=== PATIENT | female | born 1940 | race Caucasian/White ===

== ENCOUNTER 2016-11-11 20:23 | Inpatient (IN) | payer MEDICARE ==
[~2016-11-11] VITALS: Ht 162.6 cm; Wt 88.0 kg
[~2016-11-11 20:23] MED LIST: AMITRIPTYLIN10 MG PO; AMLODIPINE5 MG PO; ARAVA20 MG PO; ASPIRIN LOW DOS81 M2 PO; BENAZEPRIL10 MG PO; CIPROFLOXACN500 MG PO; CITALOPRAM20 MG PO; CITRUCEL500 MG PO; FISH OIL1000 MG PO; GLIMEPIRIDE2 MG PO; HUMALOG100 MG/ML; KEFLEX500 MG PO; LABETALOL200 MG PO; LEVOTHYROXIN100 MCG PO; MAXZIDE-2537.5 MG/TA PO; MELATONIN3 MG PO; METRONIDAZOL500 MG PO; MICRO-K10 ME1 PO; MULTI VIT PO; PRAVASTATIN SOD20 MG PO; PROAIR HFA IN; PROBIOTI2 PO; SPIRIVA IN; VITAMIN B CO PO; [UNRECOGNIZED DRUG - CODE] PO
[2016-11-11] MEDS ORDERED: ROPINIROLE1 MG PO (21:22)
[2016-11-11] MEDS ORDERED: ZESTRIL/PRI10 MG/TAB PO (21:23)
[2016-11-11] MEDS ORDERED: CYMBALTA60 MG PO (21:23)
[2016-11-11] MEDS ORDERED: ADEMPAS2.5 MG PO (21:24)
[2016-11-11 23:30] LABS: HEMATOCRIT 34.7 % (37.0-47.0); HEMOGLOBIN 11.5 g/dl (12.0-16.0); IMMATURE GRANULOCYTES 0.6 % (0.0-1.0); MEAN CELL VOLUME 92.8 fL CALC (80.0-100.0); MEAN CORPUSCULAR HGB 30.7 pG CALC (26.0-32.0); MEAN CORPUSCULAR HGB CONC 33.1 g/L CALC (32.0-36.0); NEUT# 10.01 thou/uL (2.00-7.15); RED BLOOD COUNT 3.74 mill/uL (4.20-5.60); RED CELL DISTRI WIDTH 14.8 % (11.5-15.5)
[2016-11-11 23:36] LABS: ALBUMIN 4.2 g/dL (3.2-5.0); ALKALINE PHOSPHATASE 81 u/l (38-126); ANION GAP 15 (6-22 (CALC)); BILIRUBIN, TOTAL 0.7 mg/dL (0.0-1.4); BUN 34 mg/dL (8-23); BUN/CREATININE RATIO 27 (12-20 (CALC)); CALCIUM 9.1 mg/dL (8.4-10.2); CARBON DIOXIDE 26 mmol/l (22-30); CHLORIDE 98 mmol/l (95-108); CREATININE 1.3 mg/dL (0.5-1.0); GFR 40 ML/MIN (>=60 (CALC)); GFR FOR AFR.AMER. 48 ML/MIN (>=60 (CALC)); GLUCOSE 234 mg/dL (82-115); POTASSIUM 3.6 mmol/l (3.5-5.1); SGOT/AST 33 u/l (9-36); SGPT/ALT 27 u/l (11-66); SODIUM 136 mmol/l (137-146); TOTAL PROTEIN 7.6 g/dL (6.3-8.2)
[2016-11-11 23:50] LABS: MYOGLOBIN 122 ng/mL (0 - 62)
[2016-11-12 05:38] VITALS: BP 142/67
[2016-11-12 08:45] VITALS: BP 139/52
[2016-11-12 11:00] VITALS: BP 153/50
[2016-11-12 13:13] LABS: HEMATOCRIT 38.3 % (37.0-47.0); HEMOGLOBIN 12.6 g/dl (12.0-16.0); IMMATURE GRANULOCYTES 0.8 % (0.0-1.0); MEAN CELL VOLUME 92.5 fL CALC (80.0-100.0); MEAN CORPUSCULAR HGB 30.4 pG CALC (26.0-32.0); MEAN CORPUSCULAR HGB CONC 32.9 g/L CALC (32.0-36.0); NEUT# 8.12 thou/uL (2.00-7.15); RED BLOOD COUNT 4.14 mill/uL (4.20-5.60); RED CELL DISTRI WIDTH 14.6 % (11.5-15.5)
[2016-11-12 13:34] LABS: CALCIUM 9.6 mg/dL (8.4-10.2); CREATININE 1.1 mg/dL (0.5-1.0); POTASSIUM 3.2 mmol/l (3.5-5.1)
[2016-11-12 15:07] VITALS: BP 154/57
[2016-11-12 19:02] VITALS: BP 151/52
[2016-11-12 23:27] VITALS: BP 129/54
[2016-11-13 02:18] VITALS: BP 134/68
[2016-11-13 04:15] VITALS: BP 135/62
[2016-11-13 05:07] LABS: HEMATOCRIT 35.2 % (37.0-47.0); HEMOGLOBIN 11.8 g/dl (12.0-16.0); IMMATURE GRANULOCYTES 0.4 % (0.0-1.0); MEAN CELL VOLUME 91.7 fL CALC (80.0-100.0); MEAN CORPUSCULAR HGB 30.7 pG CALC (26.0-32.0); MEAN CORPUSCULAR HGB CONC 33.5 g/L CALC (32.0-36.0); RED BLOOD COUNT 3.84 mill/uL (4.20-5.60); RED CELL DISTRI WIDTH 14.4 % (11.5-15.5)
[2016-11-13 05:39] LABS: ANION GAP 17 (6-22 (CALC)); BUN 30 mg/dL (8-23); BUN/CREATININE RATIO 30 (12-20 (CALC)); CALCIUM 9.6 mg/dL (8.4-10.2); CARBON DIOXIDE 24 mmol/l (22-30); CHLORIDE 101 mmol/l (95-108); GFR 54 ML/MIN (>=60 (CALC)); GFR FOR AFR.AMER. > 60 ML/MIN (>=60 (CALC)); GLUCOSE 166 mg/dL (82-115); POTASSIUM 3.6 mmol/l (3.5-5.1); SODIUM 138 mmol/l (137-146)
[2016-11-13 07:42] VITALS: BP 147/72
[2016-11-13] MEDS ORDERED: LABETALOL200 MG PO (10:28)
[2016-11-13 11:05] VITALS: BP 165/48
[2016-11-13] MEDS ORDERED: DOXYCYC MONO100 M2 PO (15:44)
[2016-11-13] MEDS ORDERED: ALBUTEROL0.5 % IN (15:44)
[2016-11-13] MEDS ORDERED: PROAIR HFA IN (15:44)
[2016-11-13] MEDS ORDERED: MEDDOSEPAK PO (15:48)
== END 2016-11-13 16:05 | disposition home or self-care (01) | DRG 191 ==
LOC: ENPENDDIS → ED 20:23 → ED-I 11-12 01:30 → ED 11-12 04:24 → MS2 11-12 04:25
PROVIDERS: Emergency Medicine; ADMIT Internal Medicine; ATTEND Internal Medicine
DX: J44.0 Chronic obstructive pulmonary disease with (acute) lower respiratory infection (principal); N17.9 Acute kidney failure, unspecified; I27.2 Other secondary pulmonary hypertension; Z99.81 Dependence on supplemental oxygen; J20.9 Acute bronchitis, unspecified; I10 Essential (primary) hypertension; E11.9 Type 2 diabetes mellitus without complications; E78.5 Hyperlipidemia, unspecified; M06.9 Rheumatoid arthritis, unspecified; R09.02 Hypoxemia; M79.7 Fibromyalgia; G47.33 Obstructive sleep apnea (adult) (pediatric); I25.10 Atherosclerotic heart disease of native coronary artery without angina pectoris; I34.1 Nonrheumatic mitral (valve) prolapse; E03.9 Hypothyroidism, unspecified; Z86.711 Personal history of pulmonary embolism; Z86.718 Personal history of other venous thrombosis and embolism; Z96.653 Presence of artificial knee joint, bilateral
CPT/HCPCS: A9540; A9567; J1650

== ENCOUNTER 2017-04-05 14:55 | Observation (INO) | payer MEDICARE ==
[~2017-04-05] VITALS: Ht 162.6 cm; Wt 49.2 kg
[~2017-04-05 14:55] MED LIST changes: +ADEMPAS2.5 MG PO; +ALBUTEROL0.5 % IN; +CYMBALTA60 MG PO; +DOXYCYC MONO100 M2 PO; +MEDDOSEPAK PO; +ROPINIROLE1 MG PO; +ZESTRIL/PRI10 MG/TAB PO
--- NOTE | 2017-04-05 15:09 | NUR ---
PT ARRIVED TO FLOOR VIA WHEELCHAIR ACCOMPANIED BY VOLUNTEER. PT ON HOME O2 @ 3L VIA NC. OB W/ MINIMAL EXERTION. PT REPORTS DIZZINESS UPON STANDING. FALL PRECAUTIONS REINFORCED. PLAN OF CARE DISCUSSED. REPORTING OF CONCERNS ENCOURAGED. CALL LIGHT REVIEWED AND IN REACH. PT STATES UNDERSTANDING.
[2017-04-05 15:15] VITALS: BP 147/46
[2017-04-05] MEDS ORDERED: SYNTHROID100 MCG PO (15:55)
[2017-04-05] MEDS ORDERED: BASAGLAR K100 UNIT/M SC (15:59)
[2017-04-05] MEDS ORDERED: BUMETANIDE1 MG PO (16:01)
[2017-04-05 17:20] LABS: URINE BILIRUBIN - DIPSTICK NEGATIVE (NEGATIVE); URINE BLOOD DIPSTICK TRACE-INTACT (NEGATIVE); URINE CLARITY CLOUDY; URINE COLOR YELLOW; URINE GLUCOSE - DIPSTICK NEGATIVE (NEGATIVE); URINE KETONE NEGATIVE (NEGATIVE); URINE LEUK ESTERASE LARGE (NEGATIVE); URINE NITRITE - DIPSTICK NEGATIVE (Negative); URINE PROTEIN - DIPSTICK NEGATIVE (NEG-TRACE); URINE SPECIFIC GRAVITY <=1.005; URINE UROBILINOGEN - DIPSTICK 0.2 E.U./dL (0.2)
[2017-04-05 17:20] LABS: HEMATOCRIT 32.5 % (37.0-47.0); HEMOGLOBIN 10.7 g/dl (12.0-16.0); IMMATURE GRANULOCYTES 0.7 % (0.0-1.0); MEAN CELL VOLUME 93.7 fL CALC (80.0-100.0); MEAN CORPUSCULAR HGB 30.8 pG CALC (26.0-32.0); MEAN CORPUSCULAR HGB CONC 32.9 g/L CALC (32.0-36.0); NEUT# 7.05 thou/uL (2.00-7.15); RED BLOOD COUNT 3.47 mill/uL (4.20-5.60); RED CELL DISTRI WIDTH 14.7 % (11.5-15.5)
[2017-04-05 17:21] LABS: URINE RBC 0-2 RBC/hpf (0-5)
[2017-04-05 17:22] LABS: URINE BACTERIA FEW hpf; URINE EPITHELIAL CELLS MODERATE EPI/hpf (0-FEW)
[2017-04-05 17:35] LABS: ALBUMIN 3.5 g/dL (3.2-5.0); BILIRUBIN, TOTAL 0.7 mg/dL (0.0-1.4); CALCIUM 8.9 mg/dL (8.4-10.2); CREATININE 1.4 mg/dL (0.5-1.0); POTASSIUM 3.4 mmol/l (3.5-5.1); TOTAL PROTEIN 6.1 g/dL (6.3-8.2)
--- NOTE | 2017-04-05 19:00 | NUR ---
INTRODUCED TO PT, FOUND PT RESTING IN BED, ON 4LPM HUMIDIFIED OXYGEN, A/OX3, DENIES PAIN OR NEEDS AT THIS TIME, SPO2 AT 90% NOW, CIPAP AT BEDSIDE, STATES "I WILL CALL YOU WHEN I AM READY FOR CIPAP." PT WEARING A BRIEF FROM HOME, INSTRUCTED ON SKIN INTERGRITY, PT REFUSES TO REMOVE BRIEF, STATES "I WEAR IT AT HOME ALL DAY." NO DISTRESS NOTED, RESP ARE UNLABORED, 20G RFA SALINE LOCKED, FLUSHES WELL AND IS FREE OF EDEMA OR REDNESS, TRACE EDEMA NOTED ON LEFT ANKLE, LUNGS ARE COARSE AND DIMINISHED BIBASILAR, NO BM NOTED OR URINE INSPECTED AT THIS TIME. EXPLAINED PLAN OF CARE, SAFETY MEASURES, AND MED SCHEDULE, PT VOICES UNDERSTANDING, CALL HAQ IS AT REACH, WILL CONTINUE TO MONITOR.
[2017-04-05 19:08] VITALS: BP 141/64
--- NOTE | 2017-04-05 22:25 | NUR ---
PT WEARING CIPAP, RESTING IN BED AWAKE, PROVIDED A BSC, ON 4LPM OF HUMIDIFIED OXYGEN, NO DISTRESS NOTED AT THIS TIME, DENIES SOB OR PAIN, OFFERED TOILETING, DENIES NEEDS AT THIS TIME. WILL CONTINUE TO MONITOR. CALL HAQ AT REACH.
--- NOTE | 2017-04-06 00:05 | NUR ---
PT RESTING IN BED WITH EYES CLOSED, VOICES NOT COMPLAINTS, RESP ARE EVEN AND UNLABORED, WEARING CIPAP, DENIES PAIN OR NEEDS, CALL HAQ AT REACH, WILL CONTINUE TO MONITOR.
--- NOTE | 2017-04-06 03:45 | NUR ---
FOUND PT DIAPHORETIC, C/O DIZZINESS, ACCU CHECK/FINGERSTICK 53, PROVIDED WITH X2 ORANGE JUICE WITH X5 REGULAR SUGAR PACKAGES, X1 CRACKERS, AND ONE ICE CREAM CUP. WILL REASSESS GLUCOSE IN A HOUR.
[2017-04-06 03:53] VITALS: BP 148/50
--- NOTE | 2017-04-06 04:11 | NUR ---
TEMP 98.3 TYMPANIC, RESP RATE 18 EVEN AND UNLABORED, HR 80, BP 148/50, 96% ON CIPAP WITH 4LPM ON HUMIDIFIED OXYGEN.
--- NOTE | 2017-04-06 05:29 | NUR ---
PT RESTING QUIELTY IN BED, RESPONDS TO VERBAL STIMULI, A/O, DENIES DIZZINESS OR PAIN, NO S/S OF DISTRESS NOTED, WEARING CIPAP, ENCOURAGED TO CALL IF NEEDED, WILL CONTINUE TO MONITOR.
[2017-04-06 05:36] LABS: CALCIUM 8.9 mg/dL (8.4-10.2); CREATININE 1.1 mg/dL (0.5-1.0); POTASSIUM 3.5 mmol/l (3.5-5.1)
[2017-04-06 05:46] LABS: HEMATOCRIT 37.5 % (37.0-47.0); HEMOGLOBIN 12.3 g/dl (12.0-16.0); IMMATURE GRANULOCYTES 1.7 % (0.0-1.0); MEAN CELL VOLUME 93.8 fL CALC (80.0-100.0); MEAN CORPUSCULAR HGB 30.8 pG CALC (26.0-32.0); MEAN CORPUSCULAR HGB CONC 32.8 g/L CALC (32.0-36.0); NEUT# 6.05 thou/uL (2.00-7.15); RED CELL DISTRI WIDTH 14.5 % (11.5-15.5)
--- NOTE | 2017-04-06 07:53 | NUR ---
REPORT RECEIVED FROM JOCELYNE HERNANDEZ. PT SITTING UPRIGHT IN BED. ASSISTANCE GIVEN FOR SWITCHING TO O2 NC FROM CPAP MACHINE. DENIES PAIN. REPORTING OF CONCERNS ENCOURAGED. PLAN OF CARE DISCUSSED. CALL LIGHT REVIEWED AND IN REACH. PT STATES UNDERSTANDING.
[2017-04-06 08:31] VITALS: BP 148/50
[2017-04-06] MEDS ORDERED: KEFLEX500 M1 PO (08:32)
--- NOTE | 2017-04-06 10:19 | NUR ---
PRESCRIPTION FOR KEFLEX CALLED INTO [facility] PER PT REQUEST.
--- NOTE | 2017-04-06 10:49 | NUR ---
Discharge instructions given. Patient verbalizes understanding of same. Discharged in stable condition via Wheelchair to Home with spouse. All belongings sent with pt.
--- NOTE | 2017-04-07 10:40 | NUR ---
Lab reports preliminary blood cultures from 04/05/17 growing gram negative rods in 1 bottle. Pt also has Urine culture positive for E.Coli sensitive to cephalosporins. Multiple comorbitities COPD, pulmonary HTN, DM, UTI. Scr=1.1, GFR=48. Pt DC on 04/06/17 rx keflex 500mg q8h. Preliminary blood cultures called to Dr Koo for review of case.
== END 2017-04-06 10:46 | disposition home or self-care (01) ==
LOC: MS2 14:55
PROVIDERS: ADMIT Internal Medicine; ATTEND Internal Medicine
DX: T83.518A Infection and inflammatory reaction due to other urinary catheter, initial encounter (principal); N39.0 Urinary tract infection, site not specified; I27.2 Other secondary pulmonary hypertension; J96.10 Chronic respiratory failure, unspecified whether with hypoxia or hypercapnia; E78.5 Hyperlipidemia, unspecified; G25.81 Restless legs syndrome; M06.9 Rheumatoid arthritis, unspecified; M79.7 Fibromyalgia; G47.33 Obstructive sleep apnea (adult) (pediatric); E03.9 Hypothyroidism, unspecified; I25.10 Atherosclerotic heart disease of native coronary artery without angina pectoris; N17.9 Acute kidney failure, unspecified; I34.1 Nonrheumatic mitral (valve) prolapse; J44.9 Chronic obstructive pulmonary disease, unspecified; F32.9 Major depressive disorder, single episode, unspecified; I12.9 Hypertensive chronic kidney disease with stage 1 through stage 4 chronic kidney disease, or unspecified chronic kidney disease; E11.22 Type 2 diabetes mellitus with diabetic chronic kidney disease; N18.9 Chronic kidney disease, unspecified; B96.20 Unspecified Escherichia coli [E. coli] as the cause of diseases classified elsewhere; Y84.6 Urinary catheterization as the cause of abnormal reaction of the patient, or of later complication, without mention of misadventure at the time of the procedure; Z99.81 Dependence on supplemental oxygen; Z79.4 Long term (current) use of insulin; Z86.718 Personal history of other venous thrombosis and embolism; Z86.711 Personal history of pulmonary embolism

== ENCOUNTER 2017-05-12 08:59 | Inpatient (IN) | payer MEDICARE ==
[~2017-05-12] VITALS: Ht 162.6 cm; Wt 89.4 kg
[~2017-05-12 08:59] MED LIST changes: +BASAGLAR K100 UNIT/M SC; +BUMETANIDE1 MG PO; +KEFLEX500 M1 PO; +SYNTHROID100 MCG PO
--- NOTE | 2017-05-12 09:20 | NUR ---
PT IMMEDIATELY MOVED TO ER ROOM 10 VIA WC & PLACED ON O2. EKG DONE. IV ESTABLISHED. 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
[2017-05-12 10:09] LABS: HEMATOCRIT 33.1 % (37.0-47.0); HEMOGLOBIN 10.8 g/dl (12.0-16.0); IMMATURE GRANULOCYTES 0.9 % (0.0-1.0); MEAN CELL VOLUME 94.8 fL CALC (80.0-100.0); MEAN CORPUSCULAR HGB 30.9 pG CALC (26.0-32.0); MEAN CORPUSCULAR HGB CONC 32.6 g/L CALC (32.0-36.0); NEUT# 5.85 thou/uL (2.00-7.15); RED BLOOD COUNT 3.49 mill/uL (4.20-5.60); RED CELL DISTRI WIDTH 15.4 % (11.5-15.5)
[2017-05-12 10:37] LABS: BILIRUBIN, TOTAL 0.9 mg/dL (0.0-1.4); CALCIUM 9.4 mg/dL (8.4-10.2); CREATININE 1.1 mg/dL (0.5-1.0); POTASSIUM 3.4 mmol/l (3.5-5.1); TOTAL PROTEIN 6.9 g/dL (6.3-8.2)
--- NOTE | 2017-05-12 10:39 | NUR ---
PATIENT ASSISTED TO BSC MINIMAL DISTRESS NOTED, SOB WITH EXCRERTION, PATIENT STATES HAVING CHEST DISCOMFORT. MD AWARE, REPEAT EKG ORDERED.
[2017-05-12 10:49] LABS: MYOGLOBIN 204 ng/mL (0 - 62)
[2017-05-12] MEDS ORDERED: LEVOTHYROXIN125 MCG PO (11:05)
[2017-05-12] MEDS ORDERED: FUROSEMIDE40 MG PO (11:11)
[2017-05-12] MEDS ORDERED: LETAIRIS10 MG PO (11:13)
[2017-05-12] MEDS ORDERED: SPIRIVA HANDIH18 MCG IN (11:15)
--- NOTE | 2017-05-12 11:38 | NUR ---
PT UPDATED ON PLAN OF CARE. VERBAL UNDERSTANDING. DENIES ANY QUESTIONS. CALL LIGHT WITHIN REACH, WILL CONTINUE TO MONITOR.
--- NOTE | 2017-05-12 12:38 | NUR ---
PATIENT AMBULATES IN HALLWAY WITH 5L O2 ON, PLACED ON O2 MONITOR INDICATED O2 85%-90% AFTER AMBULATION. AWARE. WILL CONTINUE TO MONITOR.
--- NOTE | 2017-05-12 14:00 | NUR ---
REPORT CALLED TO JOCELYNE GARCIA.
--- NOTE | 2017-05-12 14:20 | NUR ---
PT TRANSPORTED TO MED SURG VIA STRETCHER TELE MONITOR IN PLACE WITH ED STAFF.
--- NOTE | 2017-05-12 14:30 | NUR ---
PT ARRIVED TO THE FLOOR VIA STRETCHER AND ONE PERSON ASSISTANCE FROM THE ER. PT IS AMBULATORY WITH PORTABLE OXYGEN @5L- PER PT. PT NEEDS MINIMAL STANDBY ASSISTANCE, HAS PERSONNAL WHEELCHAIR THAT IS USED A WALKER. PT ORIENTATED TO ROOM, RIGHTS, RESPONSIBILTIES, AND CALL LIGHT. HISTORY AND PHYSICAL PERFORMED. PT INSTRUCTED TO USE CALL LIGHT FOR ASSISTANCE, STATES UNDERSTANDING.
--- NOTE | 2017-05-12 15:30 | NUR ---
PT GIVEN 40MG OF IV LASIX. PT STATES UNDERSTANDING OF SIDE EFFECTS. BSC WITH HAT PROVIDED. PT INSTRUCTED TO CALL FOR ASSISTANCE. STATES UNDERSTANDING.
[2017-05-12 15:50] LABS: URINE BILIRUBIN - DIPSTICK NEGATIVE (NEGATIVE); URINE BLOOD DIPSTICK NEGATIVE (NEGATIVE); URINE CLARITY CLEAR; URINE COLOR YELLOW; URINE GLUCOSE - DIPSTICK NEGATIVE (NEGATIVE); URINE KETONE NEGATIVE (NEGATIVE); URINE LEUK ESTERASE NEGATIVE (Negative); URINE NITRITE - DIPSTICK NEGATIVE (Negative); URINE PH 6.5 (4.5-8.0); URINE PROTEIN - DIPSTICK TRACE mg/dL (NEG-TRACE); URINE UROBILINOGEN - DIPSTICK 0.2 E.U./dL (0.2)
[2017-05-12 16:45] VITALS: BP 100/43
[2017-05-12 18:40] VITALS: BP 137/53
--- NOTE | 2017-05-12 20:01 | NUR ---
PATIENT UP TO THE BSC TO VOID CLEAR YELLOW URINE AND THEN BACK TO BED. PATIENT IS ALERT AND ORIENTEDX3 WEARING O2 VIA NASAL CANNULA AT 5LPM. PATIENT STATES THATSHE IS O2 DEPENDANT AT HOME WELL. PATIENT WITH HEP LOCK TO THE RIGHT FOREARM-SITE APPEARS HEALTHY AT THIS TIME. SAFETY PRECAUTIONS REINFORCED. CALL LIGHT IN REACH. WILL CONT TO MONITOR.
--- NOTE | 2017-05-12 21:00 | NUR ---
PATIENT UP TO BSC AGAIN TO VOID AND THEN BACK TO BED. PATIENT CONT WITH O2 VIA NASAL CANNULA AT 5LPM. HS MEDS GIVEN ORDERED. BS-205. PATIENT IS REFUSING HER LEVEMIR TONIGHT SHE STATES THAT SHE DIDN'T EAT MUCH TODAY AND NOTHING TONIGHT. DR. LARIOS AWARE. CALL LIGHT IN REACH. WILL CONT TO MONITOR.
[2017-05-12 23:40] VITALS: BP 127/62
--- NOTE | 2017-05-13 | NUR ---
PATIENT APPEARS SLEEPING AT THIS TIME WITH EYES CLOSED. C-PAP IN USE. CALL LIGHT IN REACH. WILL CONT TO MONITOR.
--- NOTE | 2017-05-13 04:12 | NUR ---
PATIENT APPEARS SLEEPING AT THIS TIME. CALL LIGHT IN REACH. WILL CONT TO MONITOR.
[2017-05-13 04:51] VITALS: BP 137/55
[2017-05-13 06:57] LABS: HEMATOCRIT 31.2 % (37.0-47.0); HEMOGLOBIN 10.4 g/dl (12.0-16.0); MEAN CELL VOLUME 95.7 fL CALC (80.0-100.0); MEAN CORPUSCULAR HGB 31.9 pG CALC (26.0-32.0); MEAN CORPUSCULAR HGB CONC 33.3 g/L CALC (32.0-36.0); RED BLOOD COUNT 3.26 mill/uL (4.20-5.60); RED CELL DISTRI WIDTH 15.3 % (11.5-15.5)
--- NOTE | 2017-05-13 07:00 | NUR ---
SHIFT CHANGE REPORT FROM FRANK PINO AWAKE ALERT AND ORIENTED RESTING IN BED, TELE MONITOR IN PLACE, O2 @ 5L VIA NC IN PLACE, C/O CHEST DISCOMFORT AT THIS TIME AND STATES SHE DOES NOT BELIEVE ITS HER HEART BUT THINKS ITS FROM HER PULMONARY HTN. CALL HAQ IN REACH, WILL CONTINUE TO MONITOR AND ADDRESS NEEDS.
[2017-05-13 08:22] VITALS: BP 121/56
[2017-05-13 08:33] LABS: CHOLESTEROL HDL RATIO 3.9 (<4.4 (CALC)); CREATININE 1.1 mg/dL (0.5-1.0); POTASSIUM 3.2 mmol/l (3.5-5.1)
[2017-05-13 11:07] VITALS: BP 113/55
--- NOTE | 2017-05-13 11:31 | NUR ---
UP TO W/C AT THIS TIME, PHARMACY CONSULTED WITH PT RN REQUESTED, PT EDUCATED/INFORMED ON REASON FOR PROTOCOL OF DOCUMENTING ALL MEDS ADMINISTERED AND STATED UNDERSTANDING. HOME MEDS ARE NOW BARCODED BY PHARMACY AND WILL BE SCANNED ORDERED.
[2017-05-13 15:21] VITALS: BP 128/65
--- NOTE | 2017-05-13 17:00 | NUR ---
ADVISED CALMLY OF MOVE TO PACU FOR SAFETY FROM [facility], STATES UNDERSTANDING, SETTLED IN PACU AT THIS TIME, CALL HAQ IN REACH.
[2017-05-13 19:15] VITALS: BP 141/60
--- NOTE | 2017-05-13 19:15 | NUR ---
PATIENT RESTING IN BED IN THE PACU DUE TO IMPENDING HURRICAINE. PATIENT IS AWAKE ALERT AND ORIENTEDX3 WITH O2 VIA O2 VIA NASAL CANNULA AT 5LPM. PATIENT WITH HEP LOCK TO RIGHT FOREARM-SITE APPEARS HEALTHY AT THIS TIME. PATIENT IS UP TO THE BSC TO VOID CLEAR YELLOW URINE. SAFETY PRECAUTIONS REINFORCED. CALL LIGHT IN REACH. WILL CONT TO MONITOR.
--- NOTE | 2017-05-13 21:11 | NUR ---
ROCEPHIN GIVEN ORDERED. PATIENT MEDICATED WITH RESTORIL 15MG PO ORDERED FOR SLEEP. PATIENT REFUSED HER LEVEMIR AGAIN TONIGHT-"STATES TAHT SHE DOESN'T WANT TO DROP TOO LOW. PATIENT CONT TO VOID CLEAR YELLOW URINE-STATES SLIGHT BURNING UPON URINATION. SAFETY PRECAUTIONS REINFORCED. CALL LIGHT IN REACH. WILL CONT TO MONITOR.
--- NOTE | 2017-05-13 22:55 | NUR ---
PATIENT REMAINS IN PACU DUE TO HURRICANE CONDIDTIONS. PATIENT WITH C-PAP IN PLACE FOR NIGHT. EYES ARE CLOSED AND APPEARS SLEEPING AT THIS TIME. CALL LIGHT IN REACH. WILL CONT TO MONITOR.
--- NOTE | 2017-05-13 23:57 | NUR ---
PATIENT RETURNED TO ROOM 272 VIA BED WITH O2 IN PLACE AFTER CODE EXIT LIFTED. PATIENT WITH C-PAP IN PLACE AT THIS TIME. NO COMPLAINTS AT THIS TIME. SAFETY PRECAUTIONS REINFORCED. CALL LIGHT IN REACH. WILL CONT TO MONITOR.
[2017-05-14] VITALS (7 sets, daily range): BP systolic 112–148; BP diastolic 45–70
--- NOTE | 2017-05-14 04:43 | NUR ---
PATIENT RESTING IN BED AT THIS TIME WITH NO [id number]-ROX IN PLACE. CALL LIGHT IN REACH. WILL CONT TO MONITOR.
--- NOTE | 2017-05-14 07:00 | NUR ---
SHIFT CHANGE REPORT FROM FRANK PINO AWAKE ALERT AND ORIENTED SITTING UP AT BEDSIDE, O2 @ 5L VIA NC IN PLACE, ALL NEEDS ADDRESSED, CALL HAQ IN REACH.
[2017-05-14 07:51] LABS: ANION GAP 15 (6-22 (CALC)); BUN 20 mg/dL (8-23); BUN/CREATININE RATIO 20 (12-20 (CALC)); CALCIUM 9.2 mg/dL (8.4-10.2); CARBON DIOXIDE 26 mmol/l (22-30); CHLORIDE 106 mmol/l (95-108); GFR 54 ML/MIN (>=60 (CALC)); GFR FOR AFR.AMER. > 60 ML/MIN (>=60 (CALC)); GLUCOSE 193 mg/dL (82-115); POTASSIUM 3.2 mmol/l (3.5-5.1); SODIUM 143 mmol/l (137-146)
--- NOTE | 2017-05-14 11:15 | NUR ---
REPORT RECIEVED FROM JOCELYNE ALMONTE. ASSESSMENT COMPELTED. PT SITTING UP IN RECLINER CHAIR. PT VERBALIZES NO C/O AT THIS TIME. WILL CONTINUE TO MONITOR. CALL LIGHT IN REACH.
--- NOTE | 2017-05-14 17:40 | NUR ---
PT SITTING UP IN RECLINER CHAIR. NO C/O AT THIS TIME. RESP EVEN AND UNLABORED. WILL CONTINUE TO MONITOR. CALL LIGHT IN REACH.
--- NOTE | 2017-05-14 19:00 | NUR ---
RECEIVED SHIFT REPORT FROM SUMA STILL. PATIENT UP TO CHAIR. DENIES PAIN. NO APPARENT ACUTE DISTRESS NOTED AT THIS TIME. WILL CONTINUE TO MONITOR.
--- NOTE | 2017-05-14 22:05 | NUR ---
BEDSIDE REPORT RECEIVED FROM RUSSELLRN;PT RESTING AT BEDSIDE;PT DENIES ANY PAIN OR DISCOMFORTS AT THIS TIME;02 ON @ 5L NC WITH EVEN AND UNLABORED RESPIRATIONS;BEDSIDE COMMODE EMPTIED OF 500CC OF CLEAR/YELLOW URINE;PT DENIES ANY NEEDS AT THIS TIME;SAFETY PRECAUTIONS REVIEWED;PT EDUCATED TO CALL FOR ASSISTANCE IF NEEDED;FALL PRECAUTIONS IN PLACE;BED IN LOWEST POSITION WITH CALL LIGHT IN REACH;WILL CONTINUE TO MONITOR
--- NOTE | 2017-05-14 23:08 | NUR ---
IV SITE FOUND DISLODGED WITH CATHETER INTACT;NEW #22G STARTED TO RFA,WILL CONTINUE TO MONITO
--- NOTE | 2017-05-14 23:20 | NUR ---
PT APPEARS TO BE SLEEPING IN SUPINE POSITION WITH HOME CPAP ON;RESPIRATIONS EVEN AND UNLABORED;NO S/S OF DISTRESS NOTED;TELE MONITOR IN PLACE;CALL LIGHT WITHIN REACH;WILL CONTINUE TO MONITOR
[2017-05-15 06:00] VITALS: BP 118/67
--- NOTE | 2017-05-15 06:15 | NUR ---
PT RESTING AT BEDSIDE;PT REPORTS SLEEPING WELL LAST NIGHT;02 ON @ 5 L VIA NC,RESPIRATIONS EVEN AND UNLABORED;PT DENIES ANY PAIN OR DISCOMFORTS;SCHEDULED MEDICATIONS ADMINISTERED AT THIS TIME;CALL LIGHT IN REACH;WILL CONTINUE TO MONITOR
[2017-05-15 08:00] VITALS: BP 135/69
[2017-05-15 08:17] LABS: ANION GAP 16 (6-22 (CALC)); BUN 22 mg/dL (8-23); BUN/CREATININE RATIO 23 (12-20 (CALC)); CALCIUM 9.5 mg/dL (8.4-10.2); CARBON DIOXIDE 23 mmol/l (22-30); CHLORIDE 104 mmol/l (95-108); GFR 54 ML/MIN (>=60 (CALC)); GFR FOR AFR.AMER. > 60 ML/MIN (>=60 (CALC)); GLUCOSE 212 mg/dL (82-115); POTASSIUM 3.7 mmol/l (3.5-5.1); SODIUM 139 mmol/l (137-146)
--- NOTE | 2017-05-15 08:30 | NUR ---
PT SITTING UP IN RECLINER CHAIR. ASSESSMENT COMPLETED. VSS. RESP EVEN AND UNLABORED. POC DISCUSSED. PT VERBALIZES UNDERSTANDING. WILL CONTINUE TO MONITOR. CALL LIGHT IN REACH.
[2017-05-15 11:34] VITALS: BP 147/68
--- NOTE | 2017-05-15 15:17 | NUR ---
DR RUSS AT BEDSIDE. POC DISCUSSD WITH PT. PT VERBALIZES UNDERSTANDING. NO FURTHER QUESTIONS ASKED.
[2017-05-15 15:36] VITALS: BP 133/56
--- NOTE | 2017-05-15 19:30 | NUR ---
PATIENT SITTING UP IN THE RECLINER WITH O2 VIA NASAL CANNULA IN PLACE AT 5LPM. PATIENT IS ALERT AND ORIENTEDX3 WITH NO COMPLAINTS AT THIS TIME. PATIENT WITH IV SITE TO RIGHT FOREARM-SITE APPEARS HEALTHY AT THIS TIME. PATIENT CONT TO VOID QS AND STATES THAT SHE HAD BM TODAYX2. LUNGS ARE DIMINISHED THROUGHOUT. SAFETY PRECAUTIONS REINFORCED. CALL LIGHT IN REACH. WILL CONT TO MONITOR.
[2017-05-15 19:50] VITALS: BP 142/70
--- NOTE | 2017-05-16 | NUR ---
PATIENT APPEARS SLEEPING IN BED WITH C-PAP IN PLACE AND EYES CLOSED. CALL LIGHT IN REACH. WILL CONT TO MONITOR.
[2017-05-16 01:00] VITALS: BP 103/65
--- NOTE | 2017-05-16 04:06 | NUR ---
PATIENT APPEARS SLEEPING AT THIS TIME WITH C-PAP IN PLACE AND EYES CLOSED. CALL LIGHT IN REACH. WILL CONT TO MONITOR.
[2017-05-16 05:00] VITALS: BP 104/60
[2017-05-16 05:59] LABS: HEMATOCRIT 30.3 % (37.0-47.0); HEMOGLOBIN 9.9 g/dl (12.0-16.0); IMMATURE GRANULOCYTES 0.4 % (0.0-1.0); MEAN CELL VOLUME 94.4 fL CALC (80.0-100.0); MEAN CORPUSCULAR HGB 30.8 pG CALC (26.0-32.0); MEAN CORPUSCULAR HGB CONC 32.7 g/L CALC (32.0-36.0); NEUT# 6.01 thou/uL (2.00-7.15); RED BLOOD COUNT 3.21 mill/uL (4.20-5.60); RED CELL DISTRI WIDTH 14.9 % (11.5-15.5)
[2017-05-16 06:25] LABS: CALCIUM 9.1 mg/dL (8.4-10.2); CREATININE 1.2 mg/dL (0.5-1.0); MAGNESIUM 1.8 mg/dL (1.6-2.3); POTASSIUM 3.2 mmol/l (3.5-5.1)
[2017-05-16 07:17] VITALS: BP 127/64
--- NOTE | 2017-05-16 07:26 | NUR ---
REPORT RECEIVED FROM JOCELYNE PINO. PT SITTING IN CHAIR AT BEDSIDE. DENIES PAIN. NO SON. REPORTING OF CONCERNS ENCOURAGED. PLAN OF CARE DISCUSSED. PT REPORTS ANTICIPATION OF DISCHARGE. DISCHARGE PROCESS REVIEED. CALL LIGHT REVIEWED AND IN REACH. PT STATES UNDERSTANDING.
[2017-05-16 11:06] VITALS: BP 128/71
--- NOTE | 2017-05-16 13:42 | NUR ---
Discharge instructions given. Patient verbalizes understanding of same. Discharged in stable condition via Wheelchair to Home with spouse. All belongings sent with pt.
== END 2017-05-16 13:42 | disposition home health service (06) | DRG 313 ==
LOC: ED 08:59 → ED-I 10:53 → ED 12:50 → MS2 12:51
PROVIDERS: Emergency Medicine; Nurse Practitioner Family; ADMIT Internal Medicine; ATTEND Internal Medicine
DX: R07.2 Precordial pain (principal); I25.10 Atherosclerotic heart disease of native coronary artery without angina pectoris; J96.11 Chronic respiratory failure with hypoxia; E11.22 Type 2 diabetes mellitus with diabetic chronic kidney disease; I27.2 Other secondary pulmonary hypertension; E78.5 Hyperlipidemia, unspecified; G25.81 Restless legs syndrome; M06.9 Rheumatoid arthritis, unspecified; M79.7 Fibromyalgia; G47.33 Obstructive sleep apnea (adult) (pediatric); E03.9 Hypothyroidism, unspecified; I34.1 Nonrheumatic mitral (valve) prolapse; J44.9 Chronic obstructive pulmonary disease, unspecified; I44.0 Atrioventricular block, first degree; I12.9 Hypertensive chronic kidney disease with stage 1 through stage 4 chronic kidney disease, or unspecified chronic kidney disease; N18.3 Chronic kidney disease, stage 3 (moderate); Z79.4 Long term (current) use of insulin; Z79.84 Long term (current) use of oral hypoglycemic drugs; Z99.81 Dependence on supplemental oxygen; Z86.718 Personal history of other venous thrombosis and embolism; Z86.711 Personal history of pulmonary embolism; Z95.5 Presence of coronary angioplasty implant and graft; Z59.1 Inadequate housing
CPT/HCPCS: G0378

== ENCOUNTER → 2018-10-29 | Outpatient (REF) | payer MEDICARE ==
[~2018-10-29] MED LIST changes: +ERYTHROMYCIN250 MG PO; +FUROSEMIDE40 MG PO; +LETAIRIS10 MG PO; +LEVOTHYROXIN125 MCG PO; +MIRALAX3350 NF PO; +PREDNISONE20 MG PO; +PROAIR RES108 MCG/AC IN; +SPIRIVA HANDIH18 MCG IN; +TYVASO0.6 MG/ML IN
== END | disposition home or self-care (01) ==
LOC: LAB 16:08
PROVIDERS: ATTEND Nurse Practitioner Family
DX: I89.0 Lymphedema, not elsewhere classified (principal); M35.3 Polymyalgia rheumatica

== ENCOUNTER 2018-10-31 08:57 | Observation (INO) | payer MEDICARE ==
[~2018-10-31] VITALS: Ht 162.6 cm; Wt 87.0 kg
[~2018-10-31 08:57] MED LIST changes: -ERYTHROMYCIN250 MG PO; -MIRALAX3350 NF PO; -PREDNISONE20 MG PO; -PROAIR RES108 MCG/AC IN; -TYVASO0.6 MG/ML IN
--- NOTE | 2018-10-31 09:13 | NUR ---
PATIENT TO ROOM VIA EMS AND PHYSICIAN NOTIFIED OF PATIENT STATUS
--- NOTE | 2018-10-31 09:33 | NUR ---
SOON PT GOT TO ROOM, STATED SHE NEEDED TO HAVE BM, STATES TOOK MIRALAX LAST NIGHT AND SHE HAS BEEN HAVING DIARRHEA THIS AM. PT REFUSED BEDPAN. BEDSIDE COMMODE SET UP BY BEDSIDE AND ASSISTED PT TO COMMODE. AFTER GETTING PT BACK UP IN BED, PT IS REQUESTING BREAKFAST AND COFFEE, ADVISED PT SHE NEEDED TO WAIT FOR LAB AND XRAY RESULTS. PT THEN REQUESTING WATER.
[2018-10-31] MEDS ORDERED: ERYTHROMYCIN250 MG PO (09:58)
[2018-10-31] MEDS ORDERED: PREDNISONE20 MG PO (09:58)
[2018-10-31] MEDS ORDERED: TYVASO0.6 MG/ML IN (09:59)
[2018-10-31] MEDS ORDERED: MIRALAX3350 NF PO (10:00)
[2018-10-31] MEDS ORDERED: PROAIR RES108 MCG/AC IN (10:02)
--- NOTE | 2018-10-31 10:10 | NUR ---
FAMILY AT BEDSIDE, PT UP TO BEDSIDE COMMODE AGAIN WITH LIGHT BROWN DIARRHEA
[2018-10-31 10:12] LABS: HEMATOCRIT 38.2 % (37.0-47.0); HEMOGLOBIN 12.1 g/dl (12.0-16.0); IMMATURE GRANULOCYTES 0.6 % (0.0-5.0); MEAN CORPUSCULAR HGB 30.7 pG CALC (26.0-32.0); MEAN CORPUSCULAR HGB CONC 31.7 g/L CALC (32.0-36.0); RED BLOOD COUNT 3.94 mill/uL (4.20-5.60); RED CELL DISTRI WIDTH 15.3 % (11.5-15.5)
[2018-10-31 10:30] LABS: ALBUMIN 3.7 g/dL (3.2-5.0); ALKALINE PHOSPHATASE 68 u/l (38-126); ANION GAP 12 (6-22 (CALC)); BILIRUBIN, TOTAL 0.7 mg/dL (0.0-1.4); BUN 34 mg/dL (8-23); BUN/CREATININE RATIO 29 (12-20 (CALC)); CARBON DIOXIDE 26 mmol/l (22-30); CHLORIDE 105 mmol/l (95-108); CREATININE 1.2 mg/dL (0.5-1.0); GFR 43 ML/MIN (>=60 (CALC)); GFR FOR AFR.AMER. 52 ML/MIN (>=60 (CALC)); LIPASE 30 u/l (23-300); POTASSIUM 3.3 mmol/l (3.5-5.1); SGOT/AST 24 u/l (9-36); SODIUM 140 mmol/l (137-146); TOTAL PROTEIN 6.6 g/dL (6.3-8.2)
--- NOTE | 2018-10-31 10:59 | NUR ---
PT SITTING UP IN BED AT THIS TIME, SIDE RAILS UP AND CALL LIGHT WITHIN REACH. FAMILY AT BEDSIDE, STATES ABDOMINAL PAIN IS GETTING BETTER.
--- NOTE | 2018-10-31 11:50 | NUR ---
PTS FAMILY BROUGHT IN TYVERSA INHALER AND PT USED HER OWN MEDICATION
--- NOTE | 2018-10-31 12:50 | NUR ---
KUNABLE TO OBTAIN 20 IN AC FOR CTA OF CHEST , ADVISED. CHARGE NURSE UNABLE TO OBTAIN IV SITE EITHER
--- NOTE | 2018-10-31 12:53 | NUR ---
WENT INTO ROOM AND FOUND DAUGHTER GIVING PT A ADEMPAS PILL FROM HOME, STATES SHE HAS TO HAVE IT.
--- NOTE | 2018-10-31 13:00 | NUR ---
PT RESTING QUIETLY ON STRETCHER, FAMILY AT BEDSIDE, DENIES ANY ABDOMINAL PAIN OR CHEST PAIN FOR OVER 2 HOURS.
--- NOTE | 2018-10-31 13:16 | NUR ---
LUNCH TRAY GIVEN, PT HAS EATEN APPROX 75 %. DENIES ANY FEELING OF DIARRHEA AT THIS TIME ANYMORE
--- NOTE | 2018-10-31 14:04 | NUR ---
PTS FAMILY CALLED NURSE TO ROOM, PT HAS LARGE AMOUNT OF DIARRHEA ALL OVER PT AND STRETCHER, STATES JUST CAME ALL OF A SUDDEN UNABLE TO USE CALL LIGHT FOR HELP TO BEDSIDE COMMODE. CLEANED PT UP, AND GAVE HER A NEW GOWN, CLEANED STRETCHER, AND CHANGED SHEETS. PT STATES FEELS MUCH BETTER AT THIS TIME
--- NOTE | 2018-10-31 14:30 | NUR ---
PT TAKEN UP TO MED SURG PER STRETCHER AND TELEMENTRY
[2018-10-31 14:44] VITALS: BP 108/60
--- NOTE | 2018-10-31 15:58 | NUR ---
PT WATCHING TELEVISION IN BED. NO C/O PAIN OR NEEDS. CALL LIGHT IN REACH. WILL CONTINUE TO MONITOR.
--- NOTE | 2018-10-31 17:03 | NUR ---
PT ADMINISTERED HOME MED WITH HOME EQUIPMENT.
[2018-10-31 19:11] VITALS: BP 119/58
[2018-10-31 20:14] LABS: URINE BILIRUBIN - DIPSTICK NEGATIVE (NEGATIVE); URINE BLOOD DIPSTICK NEGATIVE (NEGATIVE); URINE COLOR YELLOW; URINE GLUCOSE - DIPSTICK NEGATIVE (NEGATIVE); URINE KETONE NEGATIVE (NEGATIVE); URINE LEUK ESTERASE SMALL (Negative); URINE NITRITE - DIPSTICK NEGATIVE (Negative); URINE PH 5.5 (4.5-8.0); URINE PROTEIN - DIPSTICK 100 mg/dL (NEG-TRACE); URINE SPECIFIC GRAVITY >=1.030; URINE UROBILINOGEN - DIPSTICK 0.2 E.U./dL (0.2)
[2018-10-31 20:15] LABS: URINE CLARITY CLEAR
--- NOTE | 2018-10-31 20:15 | NUR ---
PT ASSISTED FROM RESTROOM TO BED, ASSISTED W/UNDERWEAR AND PROVIDED A PAD/PER REQUEST FOR MILD STRESS INCONTINENCE, PT ASSISTED W/SOCKS AND POSITIONING. PT REPORTS FEELING "MUCH BETTER," FROM SHOWER. WILL FOLLOW-UP W/ASSESSMENT AND MEDICATIONS ORDERS PROVIDE. CALL LIGHT AT BEDSIDE.
[2018-10-31 20:21] LABS: URINE RBC 0-2 RBC/hpf (0-5)
[2018-10-31 20:22] LABS: URINE SQUAMOUS EPITHELIAL CELL FEW EPI/hpf (0-FEW)
--- NOTE | 2018-10-31 20:55 | NUR ---
PT ASKING FOR ASSISTANCE W/CPAP, CALLED HER SON TO BRING HER OTHER "NEW" CPAP FROM HOME. C/O THE FACT WE DID NOT HAVE THEM AVAILABLE ON MED/SURG FLOOR. PT ASSESSED AND ASSISTED IN REPOSITIONING. CALL LIGHT AT BEDSIDE.
[2018-11-01 00:07] VITALS: BP 141/58
--- NOTE | 2018-11-01 01:18 | NUR ---
PT APPEARS TO BE SLEEPING AT THIS TIME. NO S/O DISTRESS, CPAP ON. CALL LIGHT AT SIDE.
[2018-11-01 03:38] VITALS: BP 138/63
[2018-11-01 03:42] VITALS: BP 118/51
[2018-11-01 03:44] VITALS: BP 142/51
--- NOTE | 2018-11-01 05:38 | NUR ---
PT MEDICATED ORDERS PROVIDE. PT REQUESTED HER BLOOD SUGAR BE CHECKED, SHE REPORTED "FEELING LIKE IT'S LOW," ACCU-CHECK 57, PT PROVIDED JUICE, CRACKERS AND PEANUT BUTTER. ATTEMPTED TO FLUSH IV SITE AT THIS TIME/NOT PATENT. WILL ACCESS NEW IV SITE. PT EATING SNACK AT THIS TIME. CPAP OFF AND O2 ON
[2018-11-01 05:49] LABS: HEMATOCRIT 34.7 % (37.0-47.0); HEMOGLOBIN 11.1 g/dl (12.0-16.0); IMMATURE GRANULOCYTES 0.6 % (0.0-5.0); MEAN CELL VOLUME 96.4 fL CALC (80.0-100.0); MEAN CORPUSCULAR HGB 30.8 pG CALC (26.0-32.0); NEUT# 6.8 thou/uL (2.00-7.15); RED BLOOD COUNT 3.6 mill/uL (4.20-5.60); RED CELL DISTRI WIDTH 15.5 % (11.5-15.5)
[2018-11-01 06:08] LABS: ALBUMIN 3.2 g/dL (3.2-5.0); ALKALINE PHOSPHATASE 60 u/l (38-126); AMYLASE < 30 u/l (30-110); ANION GAP 12 (6-22 (CALC)); BILIRUBIN, TOTAL 0.5 mg/dL (0.0-1.4); BUN 27 mg/dL (8-23); BUN/CREATININE RATIO 27 (12-20 (CALC)); CARBON DIOXIDE 23 mmol/l (22-30); CHLORIDE 108 mmol/l (95-108); GFR 53 ML/MIN (>=60 (CALC)); GFR FOR AFR.AMER. > 60 ML/MIN (>=60 (CALC)); LIPASE 15 u/l (23-300); MAGNESIUM 1.7 mg/dL (1.6-2.3); POTASSIUM 3.1 mmol/l (3.5-5.1); SGOT/AST 20 u/l (9-36); SODIUM 139 mmol/l (137-146); TOTAL PROTEIN 5.5 g/dL (6.3-8.2)
[2018-11-01 08:35] VITALS: BP 145/63
--- NOTE | 2018-11-01 08:35 | NUR ---
ASSESSMENT IS COMPLETED: IV SITE OBTAINED BY ICU NURSE THS AM. HR IS REG, PULSES ARE STRONG X4, ABD IS SOFT WITH ACTIVE BS. BREATH SOUNDS ARE CLEAR AND DIMINISHED, O2 @ 2LITERS WITH NC. CALL BEL WITHIN REACH. TELE MONTIOR IN PLACE. CONTINUE TO OSBERVE AND MONITOR.
--- NOTE | 2018-11-01 10:03 | NUR ---
REQUESTED CLARIFICATION ON MEDICATION DELIVERY. SUMA MORENO HAS SPOKE WITH SHERMAN IN PHARMACY AND WILL DOCUMENT PT ADMINISTERS OWN MEDICATION AT BEDSIDE. RESPIRATORY IS NOT RESPONSIABLE FOR MEDICATION DELIVERY.
[2018-11-01 11:05] VITALS: BP 165/62
[2018-11-01] MEDS ORDERED: CIPROFLOXACN500 MG PO (12:27)
--- NOTE | 2018-11-01 12:30 | NUR ---
PT WAITING FOR DISCHARGE INSTRUCTIONS SO SHE CAN GO HOME DUE TO MOVING TO THE [place]. IV SITE IS FREE FROM REDNESS OR EDEMA.
--- NOTE | 2018-11-01 13:43 | NUR ---
IV SITE DISCONTINUED CATHETER INTACT. NO REDMESS OR EDEMA. DISCHARGE INSTRUCTIONS GIVEN WAITING ON FAMILY TO COME. WITH HER O2. ALL BELONGINGS WENT WITH PT.
== END 2018-11-01 13:43 | disposition home or self-care (01) ==
LOC: ED 08:57 → ED-I 12:00 → ED 12:59 → MS2 13:00
PROVIDERS: Emergency Medicine; ADMIT Internal Medicine Nephrology; ATTEND Internal Medicine Nephrology
DX: N39.0 Urinary tract infection, site not specified (principal); I12.9 Hypertensive chronic kidney disease with stage 1 through stage 4 chronic kidney disease, or unspecified chronic kidney disease; E11.22 Type 2 diabetes mellitus with diabetic chronic kidney disease; N18.3 Chronic kidney disease, stage 3 (moderate); I25.10 Atherosclerotic heart disease of native coronary artery without angina pectoris; J44.9 Chronic obstructive pulmonary disease, unspecified; M06.9 Rheumatoid arthritis, unspecified; G25.81 Restless legs syndrome; E78.5 Hyperlipidemia, unspecified; M79.7 Fibromyalgia; G47.33 Obstructive sleep apnea (adult) (pediatric); I27.20 Pulmonary hypertension, unspecified; E03.9 Hypothyroidism, unspecified; I34.1 Nonrheumatic mitral (valve) prolapse; E66.9 Obesity, unspecified; Z68.32 Body mass index [BMI] 32.0-32.9, adult; Z86.711 Personal history of pulmonary embolism; Z95.5 Presence of coronary angioplasty implant and graft; Z86.718 Personal history of other venous thrombosis and embolism; Z96.653 Presence of artificial knee joint, bilateral; R07.9 Chest pain, unspecified; R06.00 Dyspnea, unspecified
CPT/HCPCS: G0378

== ENCOUNTER 2019-09-14 11:52 | Observation (INO) | payer MEDICARE ==
[~2019-09-14] VITALS: Ht 162.6 cm; Wt 95.0 kg
[~2019-09-14 11:52] MED LIST changes: +ERYTHROMYCIN250 MG PO; +MIRALAX3350 NF PO; +PREDNISONE20 MG PO; +PROAIR RES108 MCG/AC IN; +TYVASO0.6 MG/ML IN
--- NOTE | 2019-09-14 12:07 | NUR ---
PATIENT TO ROOM VIA EMS, ALERT AND ORIENTED X3. ON 5L/MIN ON NASAL CANNULA AT HOME. BEDSIDE TRIAGE COMPELTED.
[2019-09-14] MEDS ORDERED: ELIQUIS5 MG PO (12:15)
[2019-09-14] MEDS ORDERED: LYRICA100 MG PO (12:21)
[2019-09-14] MEDS ORDERED: OPSUMIT10 MG PO (12:26)
--- NOTE | 2019-09-14 13:00 | NUR ---
PT MEDICATED PER MAR; VSS; PT DENIES ANY NEEDS AT THIS TIME
[2019-09-14 13:18] LABS: HEMOGLOBIN 10.1 g/dl (12.0-16.0); IMMATURE GRANULOCYTES 0.5 % (0.0-5.0); MEAN CELL VOLUME 94.7 fL CALC (80.0-100.0); MEAN CORPUSCULAR HGB 29.9 pG CALC (26.0-32.0); MEAN CORPUSCULAR HGB CONC 31.6 g/L CALC (32.0-36.0); NEUT# 7.65 thou/uL (2.00-7.15); RED BLOOD COUNT 3.38 mill/uL (4.20-5.60); RED CELL DISTRI WIDTH 16.5 % (11.5-15.5)
[2019-09-14 13:33] LABS: PROTHROMBIN TIME 10.7 SECONDS (9.0-12.5)
[2019-09-14 13:44] LABS: ALBUMIN 3.4 g/dL (3.2-5.0); ALKALINE PHOSPHATASE 57 u/l (38-126); ANION GAP 11 (6-22 (CALC)); BUN 23 mg/dL (8-23); BUN/CREATININE RATIO 24 (12-20 (CALC)); CARBON DIOXIDE 26 mmol/l (22-30); CHLORIDE 105 mmol/l (95-108); GFR 53 ML/MIN (>=60 (CALC)); GFR FOR AFR.AMER. > 60 ML/MIN (>=60 (CALC)); POTASSIUM 4.3 mmol/l (3.5-5.1); SGOT/AST 23 u/l (9-36); SODIUM 138 mmol/l (137-146); TOTAL PROTEIN 6.2 g/dL (6.3-8.2)
[2019-09-14 13:46] LABS: ACT PARTIAL THROMBO TIME 30.3 SECONDS (20.0-32.5); D-DIMER 0.44 mg/L (0.19-0.60)
[2019-09-14 13:52] LABS: BILIRUBIN, TOTAL 0.6 mg/dL (0.0-1.4)
--- NOTE | 2019-09-14 14:00 | NUR ---
PT ASSISTED TO BSC AT THIS TIME; MODERATE AMOUNT OF CLEAR YELLOW URINE NOTED; PT NOTABLE SOB AFTER EXERTION; PURSED LIP BREATHING TECHNIQUES COACHED; VSS; PT DENIES ANY OTHER NEEDS AT THIS TIME
--- NOTE | 2019-09-14 15:00 | NUR ---
PUREWICK PLACED AT THIS TIME TO REDUCE PT EXCERTION; PT TOLERATED WELL; PT ADVISED OF CONTINUED WAIT TIME FOR ADMISSION; VSS; WILL CONTINUE TO MONITOR
--- NOTE | 2019-09-14 16:00 | NUR ---
PT RESTING ON STRETCHER; NO S/S OF DISTRESS NOTED; 1200ML OF CLEAR YELLOW URINE NOTED FROM PUREWICK; PT ADVISED OF CONTINUED WAIT TIME FOR ADMISSION; VSS; WILL CONTINUE TO MONITOR
--- NOTE | 2019-09-14 16:27 | NUR ---
REPORT REC FROM KESHAV CASANOVA
--- NOTE | 2019-09-14 16:44 | NUR ---
PT ARRIVED TO MS VIA WHEELCHAIR ACCOMPANIED BY KESHAV CASANOVA. PT A&O X3. O2 NC @ 5L. PER PT SHE IS DEPENDENT ON IT AT HOME AT THAT RATE. NO DISTRESS NOTED. CPAP MACHINE BROUGHT FROM HOME, SET UP AT THE SIDE OF THE BED. SWELLING NOTED TO LT ARM, LIMB ALERT BRACELET PLACED DUE TO BILATERAL MASECTOMY. SWELLING ALSO NOTED TO BILATERAL LOWER EXTREMITIES. PERWICK IN PLACE TO SUCTION. PER ED NURSE PT O2 SATURATION DROPPED DOWN TO 85% WHEN TRYING TO AMBULATE TO THE RESTROOM. HOME MEDICATION LIST COPIED AND PLACED ON FILE. HOME MEDICATIONS TO BE SENT TO THE PHARMACY TO BE PROFILED. ORIENTED PT TO ROOM. ASSESSMENT COMPLETED. CALL LIGHT IN REACH. CONTINUE TO MONITOR.
--- NOTE | 2019-09-14 16:51 | NUR ---
Admission Note Report Given to: SUMA DASILVA Transported by: Wheelchair X Stretcher Transported with: X Nurse Transporter X Patent IV X O2 X Circle Saw Operator Location: ICU X [facility]
[2019-09-14 17:00] VITALS: BP 142/62
[2019-09-14 19:00] VITALS: BP 157/72
--- NOTE | 2019-09-14 19:25 | NUR ---
REPORT FROM CASPER MOISE. PT SITTING UP IN BED. ALERT AND ORIENTED. NO APPARENT DISTRESS NOTED. O2 AT 5L/M VIA NC. PT DENIES ANY PAIN OR DISCOMFORT. IV SITE APPEARS HEALTHY. DISCUSSED POC. PT VERBALIZED UNDERSTANDING. CALL LIGHT WITHIN REACH. WILL CONTINUE TO MONITOR.
[2019-09-14 23:24] VITALS: BP 154/78
--- NOTE | 2019-09-14 23:45 | NUR ---
ASSISTED PT TO RECLINER. PT SOB AND NOT COMFORTABLE IN BED AT THIS TIME. HOME CPAP MACHINE IN PLACE. O2 SAT 96% AT THIS TIME. CALL LIGHT WITHIN REACH. WILL CONTINUE TO MONITOR.
[2019-09-15 00:15] VITALS: BP 110/52
--- NOTE | 2019-09-15 00:20 | NUR ---
PT REQUESTING TO GET BACK IN BED. ONCE IN BED PT REQUEST TO GET ON BSC TO VOID. PT ASSISTED BACK UP. PT VOIDED WITHOUT DIFFICULTY. CPAP IN PLACE AT THIS TIME. ASSISTED PT BACK TO BED. POSITIONED FOR COMFORT. CALL LIGHT WITHIN REACH. WILL CONTINUE TO MONITOR.
[2019-09-15 03:22] VITALS: BP 144/62
--- NOTE | 2019-09-15 04:29 | NUR ---
PT RESTING IN BED WITH EYES CLOSED. NO APPARENT DISTRESS NOTED. HOME CPAP MACHINE IN PLACE. CALL LIGHT WITHIN REACH. WILL CONTINUE TO MONITOR.
--- NOTE | 2019-09-15 08:00 | NUR ---
REPORT RECEIVED FROM JOCELYNE ESPINOZA. PT IN BED. PT IS ABLE TO MAKE NEEDS KNOWN. PT DENIES ANY NEEDS AT THIS TIME
--- NOTE | 2019-09-15 08:30 | NUR ---
PATIENT COMPLAIN OF PAIN OF 6/10 ON LEFT CHEST AREA. PT REFUSES PAIN MEDS. OXYGEN AT 5LPM VIA NC IN PLACE. PT REQUESTING HER BP MEDS. PT STATES"MY BP MEDS HELPS WITH MY CHEST PAIN." VITALS SIGNS MEASURED. AM MEDS ADMINISTERED. BP MEDS ADMINISTERED PER ORDR. PT ASISTED TO BSC THEN BACK TO BED. PT REQUESTING LONGER OXYGEN TUBE. RT DEPT NOTIFIED VIA NORA. PT DENIES ANY OTHER CONCERNS. LINE WALKER WILL ONTINUE TO MONITOR
[2019-09-15 11:00] VITALS: BP 134/55
[2019-09-15 12:00] VITALS: BP 152/72
--- NOTE | 2019-09-15 12:00 | NUR ---
PT IN ROOM SITTING UP IN BED. ANGIO CATH 22 INSERTED BY ER NURSE ON PT'S RIGHT WRIST. PT TOLERATED PROCEDURE WELL. WILL CONTINUE TO MONITOR
[2019-09-15 15:40] VITALS: BP 142/58
--- NOTE | 2019-09-15 16:00 | NUR ---
PT REQUESTING MEDICATION FOR LEGLESS LEG SYNDROME. PT ADVISED THAT SHE HAS ROUTINE MEDICATION AT 2100. GM NEGRETE NOTIFIED. NO NEW ORDERS.
--- NOTE | 2019-09-15 19:00 | NUR ---
RECEIVED REPORT FROM DAY NURSE PATIENT CURRENTLY SITTING IN BED, WATCHING TV, HOOKED TO O2 VIA NC, EVEN UNLABORED BRWEATHING CALL LIGHT AT REACH.
[2019-09-15 20:13] VITALS: BP 125/59
--- NOTE | 2019-09-15 21:30 | NUR ---
PATIENT ALERT ORIENTED ABLE TO MAKE NEEDS KNOWN, WITH SALINE LOCK ON RT FOREARM PATENT FLUSHES WELL, REMAINS ON TELE, CALLED RT TO SET UP CPAP FOR PATIENT. C/O RESTLESS LEGS SCHEDULED ROPINIROLE GIVEN.
--- NOTE | 2019-09-16 | NUR ---
PATIENT RESTING IN BED WITH EYES CLOSED REMAINS ON CPAP WITH EVEN AND UNLABORED BREATHING CALL LIGHT AT REACH/
[2019-09-16 03:41] VITALS: BP 128/65
--- NOTE | 2019-09-16 04:57 | NUR ---
PATIENT COLD AND CLAMMY BS 60, ORANGE JUICE GIVEN SANDWICH WILL RECHECKED.
[2019-09-16 06:45] LABS: CREATININE 1.2 mg/dL (0.5-1.0); MAGNESIUM 2.1 mg/dL (1.6-2.3); POTASSIUM 3.9 mmol/l (3.5-5.1)
--- NOTE | 2019-09-16 07:15 | NUR ---
REPORT RECEIVED FROM JOCELYNE MCKEON;PT APPEARS TO BE SLEEPING IN SEMI FOWLERS POSITION;NO S/S OF DISTRESS NOTED;RESPIRATIONS APPEAR EVEN AND UNLABORED ON O2 @ 5L VIA NC;TELE MONITORING IN PLACE;ALL SAFETY PRECAUTIONS NOTED WITH BED IN THE LOWEST POSITION AND CALL LIGHT IN REACH;WILL CONTINUE TO MONITOR
[2019-09-16 07:18] LABS: IMMATURE GRANULOCYTES 1.1 % (0.0-5.0); MEAN CELL VOLUME 93.2 fL CALC (80.0-100.0); MEAN CORPUSCULAR HGB 29.3 pG CALC (26.0-32.0); MEAN CORPUSCULAR HGB CONC 31.4 g/L CALC (32.0-36.0); NEUT# 6.64 thou/uL (2.00-7.15); RED BLOOD COUNT 4.13 mill/uL (4.20-5.60); RED CELL DISTRI WIDTH 16.6 % (11.5-15.5)
[2019-09-16 07:20] LABS: HEMATOCRIT 38.5 % (37.0-47.0); HEMOGLOBIN 12.1 g/dl (12.0-16.0)
[2019-09-16 09:04] VITALS: BP 157/73
--- NOTE | 2019-09-16 09:10 | NUR ---
PT RESTING IN SEMI FOWLERS POSITION,A&O X3;VS OBTAINED AND ASSESSMENT COMPLETED;PT DENIES ANY CURRENT PAIN ,PAIN SCALE AND REPORTING EDUCATED;RESPIRATIONS SHALLOW ON O2 @ 5L VIA NC,NON-PRODUCTIVE COUGH NOTED AT TIMES;ABDOMEN DISTENDED/SOFT ON PALPATION AND ACTIVE IN ALL 4 QUADRANTS;WEAK PEDAL PULSES;SKIN INTACT;EDEMA NOTED TO LEFT ARM AND BLE,ENCOURAGED ELEVATION;#22G TO RW FLUSHED AND PATENT,SITE APPEARS HEALTHY;ACCUCHECK 77, PT ENCOURAGED TO INCREASE ORAL INTAKE;PT ASYMPTOMATIC;PT DENIES ANY ADDITIONAL NEEDS AT THIS TIME AND IS ENCOURAGED TO CALL FOR ASSISTANCE IF NEEDEED;CALL LIGHT IN REACH;WILL CONTINUE TO MONITOR
[2019-09-16 11:28] VITALS: BP 112/41
--- NOTE | 2019-09-16 12:00 | NUR ---
PT RESTING IN SEMI FOWLERS POSITION;RESPIRATIONS REMAIN EVEN AND UNLABORED,SHALLOW ON O2 @ 5L VIA NC;PT DENIES ANY CURRENT PAIN OR NEEDS;TELE MONITORING IN PLACE;IV SITE PATENT;PT INSTRUCTED ON PLANS TO D/C HOME AND PT VERBALIZES UNDERSTANDING;PT DENIES ANY ADDITIONAL NEEDS AND IS ENCOURAGED TO CALL FOR ASSISTANCE IF NEEDED;CALL LIGHT IN REACH;WILL CONTINUE TO MONITOR
--- NOTE | 2019-09-16 15:10 | NUR ---
ALL DISCHARGE INSTRUCTIONS PROVIDED AT THIS TIME;PT INSTRUCTED TO F/U WITH PCP, MONITOR HER WT, AND TAKE HER HOME MEDICATIONS PRESCRIBED;IV SITE REMOVED WITH CATHETER INTACT AND TELE MONITORING D/C;PT DENIES ANY ADDITIONAL NEEDS;WHEELCHAIR TO BE PROVIDED FOR D/C HOME;AWAING FAMILY MEMBER FOR TRANSPORT HOME.
--- NOTE | 2019-09-16 16:10 | NUR ---
Discharge instructions given. Patient verbalizes understanding of same. Discharged in stable condition via Wheelchair to Home with family. All belongings sent with pt. PT TRANSPORTED TO [facility] IN STABLE CONDITION VIA WHEELCHAIR ACCOMPANIED BY ANGÉLICA DORSEY.FAMILY TO TRANSPORT PT HOME.
--- NOTE | 2019-09-17 07:35 | NUR ---
09/16/19 Patient is seen for therapeutic exercises in conjunction with her compression program for home. we have conferred with HH OT to follow up with [facility] management and she is to use her home compression unit until edema reduction is achieved and she can get a compression garment.
== END 2019-09-16 16:11 | disposition home health service (06) ==
LOC: ED 11:52 → ED-I 14:04 → ED 14:20 → MS2 14:21
PROVIDERS: Nurse Practitioner Family; ADMIT Internal Medicine; ATTEND Internal Medicine
DX: I27.20 Pulmonary hypertension, unspecified (principal); J96.11 Chronic respiratory failure with hypoxia; I12.9 Hypertensive chronic kidney disease with stage 1 through stage 4 chronic kidney disease, or unspecified chronic kidney disease; E11.22 Type 2 diabetes mellitus with diabetic chronic kidney disease; N18.3 Chronic kidney disease, stage 3 (moderate); I25.10 Atherosclerotic heart disease of native coronary artery without angina pectoris; J44.9 Chronic obstructive pulmonary disease, unspecified; E78.5 Hyperlipidemia, unspecified; E03.9 Hypothyroidism, unspecified; M06.9 Rheumatoid arthritis, unspecified; G47.33 Obstructive sleep apnea (adult) (pediatric); I34.1 Nonrheumatic mitral (valve) prolapse; M79.7 Fibromyalgia; G25.81 Restless legs syndrome; Z99.81 Dependence on supplemental oxygen; Z95.5 Presence of coronary angioplasty implant and graft; Z86.711 Personal history of pulmonary embolism; Z86.718 Personal history of other venous thrombosis and embolism; R07.9 Chest pain, unspecified
CPT/HCPCS: G0378